=== PATIENT | female | born 1965 | race Caucasian/White ===

== ENCOUNTER 2018-02-21 17:27 | Inpatient (IN) | payer BC, OTHER ==
[~2018-02-21] VITALS: Ht 157.5 cm; Wt 125.6 kg
--- NOTE | ~2018-02-21 | HC ---
[facility] [place] [address] CONSULTATION Name: JUVE DELGADILLO Room #: 420-P ADM IN M.R.#: [id number] Admission: 02/21/18 Attend Phys: Kojo Dixon Discharge: Date of : 65 Report #: [id number] THIS REPORT FOR: //name// CC: Braulio Ace DATE OF SERVICE: 02/25/2018 HISTORY OF PRESENT ILLNESS: A 53-year-old white female with chronic back pain, fibromyalgia, Sjogren syndrome, migraine headaches, obesity, who was admitted to [facility] from [facility]. She was noted to have left lower extremity weakness status post spinal cord stimulator and blood patch placement on 02/21/2018. She had a permanent spinal cord stimulator placed with a positive CSF leak and thus had a blood patch noted at L1-L2. Spinal cord stimulator was noted to have program normally. She awoke with left leg pain and numbness and weakness. Apparently had several similar symptoms at trial and recovered. She has been admitted to [facility]. On 02/23/2018, she underwent anterior lead removal from the intrathecal space. Dr. Augustin indicated in his progress note yesterday 02/24/2018 that she could be discharged to home with ambulatory or to assisted care if not. We are seeing her in rehabilitation medicine consultation. She continues to have left lower extremity numbness and has complaints of proximal weakness. PAST MEDICAL HISTORY: As noted above. She does have a history of obesity, fibromyalgia, depression, GERD, anxiety, asthma, chronic pain, migraines, breast augmentation, lumbar spinal stenosis, lumbar region. She has had prior knee surgeries. ALLERGIES: FENTANYL. SOCIAL HISTORY: She lives with her whom she indicates she is in the process of . Two steps in. Gait was without aids prior to admission. Bedroom is noted to be in the main level. REVIEW OF SYSTEMS: No complaints of chest pain, shortness of breath or abdominal discomfort. She has the left lower extremity pain complaints and proximal weakness as noted above. PHYSICAL EXAMINATION: GENERAL: She is an obese, otherwise pleasant 53-year-old white female in no obvious distress. VITAL SIGNS: Last recorded temperature 36.4, pulse 60, respirations 17, blood pressure 137/79. Alert, oriented, appropriate. HEAD, EYES, EARS, NOSE, AND THROAT: Appeared to be benign. NEUROLOGIC: Cranial nerves grossly intact. Facies are symmetric. Functional range of motion of both upper extremities without focal weakness. Noted to be [address] [place] [address] CONSULTATION Name: JUVE DELGADILLO Room #: 420-P [facility] IN M.R.#: [id number] Admission: 02/21/18 Attend Phys: Kojo Dixon Discharge: Date of : 65 Report #: [id number] ____ 277 pounds. Lower extremities, functional range of motion of the right lower extremity without focal weakness. Normal tone. No calf swelling. Left lower extremity, she was unable to raise that left hip in flexion more than basically reduction is probably 3. She does move the knee better in flexion and extension at 3+, ankle dorsiflexion, plantar flexion, eversion appear to be 4. She can wiggle her large toe. Tone appeared to be intact. She complained of numbness of that left lower extremity, but appeared reasonably intact to simultaneous stimulation both lower extremities to light touch. She was min assist sit to stand and has ambulated 16 feet min assist with a front-wheeled walker. ASSESSMENT: A 53-year-old white female with chronic low back pain and underwent a permanent spinal cord stimulator placement on 02/21/2018 with CSF leak treated with a blood patch ____ left lower extremity pain, numbness and proximal weakness. She has had subsequent anterior lead removal from the intrathecal space on 02/23/2018. PLAN: Discussed with nursing and case management as well as the clinical rehabilitation coordinator. Order placed for physical therapy to evaluate her again today to see how she is functioning. If she is doing reasonably well with her functional abilities, the plan would be to return directly home with her , picking her up and home health care. If she is not doing as well functionally then it would be prudent to check with insurance regarding a short acute in-hospital inpatient rehabilitation stay to further improve her functional independence. We will see how she does in therapy and proceed from there. By: 1221 [id number] Jayesh Morin MD /PMT
[~2018-02-21 17:27] MED LIST: ACCUNEB SO1.25 MG/1; ASPIR 8181 MG PO; BUTALB-APAP-CA1 EACH PO; CENTRUM SILVER1 EAC4 PO; CRESTOR10 MG PO; CYMBALTA60 MG PO; ESTRACE2 M3 PO; FENOFIBRATE160 MG PO; LASIX 40 MG TAB40 M2 PO; LEVOTHYROXINE 0.1 MG PO; LEXAPRO 10 MG T10 M1 PO; OMEPRAZOLE 20 M20 M1 PO; PERCOCET PO; PREDNISONE 10 M10 MG PO; TOPIRAMATE50 MG PO; VALIUM5 MG PO; XANAX 0.25 MG0.25 MG PO; XANAX XR2 MG PO; ZANAFLEX4 MG PO
[2018-02-21 18:29] VITALS: BP 122/70
[2018-02-21 19:30] VITALS: BP 120/68
[2018-02-22 04:10] VITALS: BP 135/70
[2018-02-22 06:17] LABS: ABSOLUTE NEUTROPHILS 5.2 thou/uL (1.4-8.2); BASOPHILS 0.1 % (0.0-2.0); EOSINOPHILS 0.1 % (0.0-3.0); HEMATOCRIT 34.8 % (37.0-47.0); HEMOGLOBIN 11.6 gm/dL (12.0-15.0); MCH 29.9 pg (26.0-34.0); MCHC 33.4 g/dL (28.0-37.0); MCV 89.3 fL (80.0-100.0); MONOCYTES 6.9 % (1.0-8.0); PLATELET COUNT 186 thou/uL (150-400); POLYS 67.9 % (36.0-66.0); WBC 7.6 thou/uL (4.0-11.0)
[2018-02-22 06:34] LABS: ALBUMIN 3.2 g/dL (3.4-5.0); CALCIUM 8.6 mg/dL (8.5-10.1); CREATININE 1.2 mg/dL (0.6-1.0); POTASSIUM 3.5 mmol/L (3.5-5.1); TOTAL BILIRUBIN 0.3 mg/dL (<0.1-1.0); TOTAL PROTEIN 6.4 g/dL (6.4-8.2)
[2018-02-22 07:40] VITALS: BP 113/51
[2018-02-22 20:30] VITALS: BP 127/64
[2018-02-23 04:30] VITALS: BP 121/68
[2018-02-23 05:45] LABS: HEMATOCRIT 32.2 % (37.0-47.0); HEMOGLOBIN 10.6 gm/dL (12.0-15.0); MCH 29.4 pg (26.0-34.0); MCHC 32.8 g/dL (28.0-37.0); MCV 89.5 fL (80.0-100.0); RBC 3.6 mil/uL (4.20-5.00); RDW 13.1 % (10.5-14.5); WBC 5.6 thou/uL (4.0-11.0)
[2018-02-23 05:55] LABS: CALCIUM 8.3 mg/dL (8.5-10.1); POTASSIUM 3.8 mmol/L (3.5-5.1)
[2018-02-23 07:37] VITALS: BP 137/69
[2018-02-23 10:47] VITALS: BP 132/70
[2018-02-23 11:19] VITALS: BP 126/77
[2018-02-23 12:38] VITALS: BP 129/82
[2018-02-23 19:25] VITALS: BP 118/74
[2018-02-24 04:24] VITALS: BP 109/69
[2018-02-24 05:09] LABS: HEMATOCRIT 35.6 % (37.0-47.0); MCH 29.8 pg (26.0-34.0); MCHC 33.7 g/dL (28.0-37.0); MCV 88.5 fL (80.0-100.0); RBC 4.02 mil/uL (4.20-5.00); WBC 6.5 thou/uL (4.0-11.0)
[2018-02-24 05:21] LABS: CALCIUM 9.2 mg/dL (8.5-10.1); CREATININE 0.9 mg/dL (0.6-1.0); POTASSIUM 3.8 mmol/L (3.5-5.1)
[2018-02-24 08:22] VITALS: BP 108/50
[2018-02-24 19:41] VITALS: BP 120/67
[2018-02-25 04:35] VITALS: BP 116/75
[2018-02-25 06:56] LABS: HEMATOCRIT 32.7 % (37.0-47.0); HEMOGLOBIN 10.7 gm/dL (12.0-15.0); MCH 29.2 pg (26.0-34.0); MCHC 32.6 g/dL (28.0-37.0); MCV 89.8 fL (80.0-100.0); RBC 3.65 mil/uL (4.20-5.00); RDW 13.1 % (10.5-14.5)
[2018-02-25 07:11] LABS: CALCIUM 9.3 mg/dL (8.5-10.1); CREATININE 0.9 mg/dL (0.6-1.0); POTASSIUM 3.8 mmol/L (3.5-5.1)
[2018-02-25 07:53] VITALS: BP 137/79
[2018-02-25 15:52] VITALS: BP 123/66
[2018-02-25 19:36] VITALS: BP 123/67
[2018-02-26 04:35] VITALS: BP 132/68
[2018-02-26 07:50] VITALS: BP 134/66
[2018-02-26 08:00] VITALS: BP 103/50
[2018-02-26 16:21] VITALS: BP 129/81
== END 2018-02-26 18:22 | DRG 29 ==
LOC: 4E 17:27 → ENTRNSPT 02-26 18:17 → 4E 02-26 18:22
PROVIDERS: Hospitalist; Nurse Practitioner
PROC: 00PV3MZ Removal of Neurostimulator Lead from Spinal Cord, Percutaneous Approach (ICD-10-PCS; principal; 2018-02-23)
DX: T85.122A Displacement of implanted electronic neurostimulator of spinal cord electrode (lead), initial encounter (principal); Z68.43 Body mass index [BMI] 50.0-59.9, adult; Y83.8 Other surgical procedures as the cause of abnormal reaction of the patient, or of later complication, without mention of misadventure at the time of the procedure; M54.5 Low back pain; M79.7 Fibromyalgia; G43.909 Migraine, unspecified, not intractable, without status migrainosus; E66.9 Obesity, unspecified; F32.9 Major depressive disorder, single episode, unspecified; G89.29 Other chronic pain; K21.9 Gastro-esophageal reflux disease without esophagitis; F41.9 Anxiety disorder, unspecified; G47.33 Obstructive sleep apnea (adult) (pediatric); E03.9 Hypothyroidism, unspecified; E78.00 Pure hypercholesterolemia, unspecified; M19.90 Unspecified osteoarthritis, unspecified site; M35.00 Sjogren syndrome, unspecified; J45.909 Unspecified asthma, uncomplicated; Z90.710 Acquired absence of both cervix and uterus; Z90.49 Acquired absence of other specified parts of digestive tract; Y92.89 Other specified places as the place of occurrence of the external cause; Z79.82 Long term (current) use of aspirin; Z79.899 Other long term (current) drug therapy; Z88.8 Allergy status to other drugs, medicaments and biological substances
CPT/HCPCS: 10783; 50101; 50386; 50417; 56524; 56526; 62110; 62850; 70005

== ENCOUNTER 2018-02-26 17:06 | Inpatient (IN) | payer BC, OTHER ==
[~2018-02-26] VITALS: Ht 157.5 cm; Wt 123.8 kg
--- NOTE | ~2018-02-26 | H ---
[facility] [address] [place] [address] HISTORY AND PHYSICAL Name: JUVE DELGADILLO Room #: 515-P [facility] IN M.R.#: [id number] Admission: 02/26/18 Attend Phys: Jayesh Morin MD Discharge: Date of : 65 Report #: [id number] THIS REPORT FOR: //name// CC: Jayesh Wright DATE OF SERVICE: 02/26/2018 HISTORY AND PHYSICAL AND POST-ADMISSION PHYSICIAN EVALUATION HISTORY OF PRESENT ILLNESS: The patient is a 53-year-old white female with chronic back pain, fibromyalgia, Sjogren syndrome, migraine headaches, obesity, originally admitted to [facility] from [facility]. She was noted to have left lower extremity weakness with complaints status post spinal cord stimulator and subsequent blood patch placement on 02/21/2018. She had a permanent spinal cord stimulator placed with positive CSF leak and thus had a blood patch noted at L1-L2. Spinal cord stimulator was noted to program normally. She indicated she awoke with left leg pain and numbness and weakness. She apparently had similar symptoms at her spinal cord stimulator trial and recovered. She was admitted to [facility]. On 02/23/2018, she underwent anterior lead removal from the intrathecal space. She continues to have complaints of left lower extremity numbness as well as groin numbness and left lower extremity weakness. She notes weakness is more proximal. PAST MEDICAL AND SURGICAL HISTORY: Includes the above. She has a history of obesity, fibromyalgia, depression, GERD, anxiety, asthma, chronic pain, migraines, breast augmentation, lumbar spinal stenosis, prior knee surgeries. ALLERGIES: FENTANYL. SOCIAL HISTORY: She lives with her whom she indicates she is in the process of . There are 2 steps in. Gait was without gait aids prior to admission. Bedroom noted to be on the main level. REVIEW OF SYSTEMS: No complaints of chest pain, shortness of breath, or abdominal discomfort. She has the left lower extremity pain complaints, proximal weakness as well as some weakness of her left large toe, feeling that the leg is "", as well as groin numbness. PHYSICAL EXAMINATION: GENERAL: An obese, pleasant 53-year-old white female, in no obvious distress. Height 5 feet 2 inches, weight 273 pounds. VITAL SIGNS: Last recorded temperature 98, pulse 61, respirations 18, blood pressure 129/81. She is alert, pleasant. HEENT: Appeared to be benign. Cranial nerves are grossly intact[place] [address] HISTORY AND PHYSICAL Name: JUVE DELGADILLO Room #: 515-P [facility] IN [facility].#: [id number] Admission: 02/26/18 Attend Phys: Jayesh Morin MD Discharge: Date of : 65 Report #: [id number] symmetric. She does have significant obesity. CHEST: Sounded clear to auscultation. CARDIOVASCULAR: Regular rate and rhythm. ABDOMEN: Abdominal pannus, bowel sounds positive, nontender. NEUROLOGIC: She has functional range of motion of both upper extremities without focal weakness. Right lower extremity functional range of motion, no focal weakness, no calf swelling, tone is intact. Left lower extremity: She moved it better than when I saw her in consultation a couple of days ago. I would grade her left hip flexion at more of a grade 3-3+, abduction was 3-3+, abduction 3-3+. She appears to contract the muscles better than when previously seen. Knee flexion and extension is at least a grade 3+. She appears to be able to move ankle dorsiflexion and plantarflexion more of a grade 4-, extensor hallus longus is 4-. Again, it was difficult to actually grade her volitional strength as she appears to have some inhibition secondary to pain. Tone appeared to be intact. Sensory examination appeared to be intact to light touch both lower extremities to simultaneous stimulation. I tested her groin and could not detect any obvious focal sensory decrease and also did a brief rectal examination, which showed good tone. She does have her back dressings in place, which are dry and there is no drainage. She has been needing min assist with short distance mobility, transfers, and has a lot of anxiety and needs to move slow. ASSESSMENT: A 53-year-old white female with the following problem list: 1. Left lower extremity weakness, numbness, pain. 2. Complaints of groin numbness. 3. Chronic low back pain. She underwent a permanent spinal cord stimulator placement on 02/21/2018 with CSF leak, treated with blood patch. She has had subsequent anterior lead removal from the intrathecal space on 02/23/2018. 4. Fibromyalgia. 5. Sjogren syndrome. 6. Migraine headaches. 7. Obesity. PLAN: The patient is involved in the inpatient rehabilitation program. From a post-admission physician evaluation perspective, there are no relevant changes since the preadmission screening. Please see the above review of prior and current medical and functional conditions and comorbidities. Please see the patient's previous and current functional status. As far as risk of complications, the patient has multiple medical comorbidities as noted above. The initial plan of care involves the interdisciplinary acute inpatient rehabilitation program with goal of maximizing her functional independence, so she can hopefully return back to her prior living situation. Prognosis is reasonably good with estimated length of stay probably 5-10 days pending her progress. Potential barriers would include her multiple medical comorbidities and decreased functional status. [facility] [address] [place] [address] HISTORY AND PHYSICAL Name: JUVE DELGADILLO Room #: 515-P ADM IN M.R.#: [id number] Admission: 02/26/18 Attend Phys: Jayesh Morin MD Discharge: Date of : 65 Report #: [id number] Hospitalist Service is assisting with her medical care. We discussed with nursing and we will defer any further dressing changes or removal as per Dr. Augustin who was consulted. She seems to be moving that left leg better for me today and I indicated optimism for her as far as gradually improving her functional independence with strength, mobility, ADLs, so we can get her back to the home setting and further progress from there. By: 0830 0921 Jayesh Morin MD /nt
--- NOTE | ~2018-02-26 | HC ---
[facility] [place] [address] [place] [address] CONSULTATION Name: JUVE DELGADILLO Room #: 515-P [facility] IN M.R.#: [id number] Admission: 02/26/18 Attend Phys: Jayesh Morin MD Discharge: 03/04/18 Date of : 65 Report #: [id number] THIS REPORT FOR: //name// CC: Jayesh Wright DATE OF SERVICE: 03/02/2018 ATTENDING PHYSICIAN: Jayesh Morin MD ULTRASOUND TECHNICIAN: Jovan Shankar, PhD CLINICAL PRESENTATION: The patient is a 53-year-old female admitted to the [facility] Unit for comprehensive inpatient rehabilitation program to improve functional mobility, activities of daily living and self-care secondary to deficits from left lower extremity weakness, numbness and pain. Additional assessment diagnoses include groin numbness, chronic low back pain, fibromyalgia, Sjogren syndrome, migraine headaches, and obesity. Reportedly, she underwent a spinal cord stimulator placement and sustained a CSF leak requiring a blood patch. Additionally, she had a subsequent anterior lead removal from the intrathecal space on 02/23/2018. A complete description of her medical condition and history along with medications can be found in her medical records. Neuropsychological consultation was requested to provide assistance in the assessment of emotional status and to provide psychological services. Prior to this most recent medical event, she was living independently in her own home. She is and in the process of divorce. The divorce is described as having been very stressful for her. She has no children. She is a high school graduate. The patient has been on disability since 1999 stemming from Sjogren's and fibromyalgia. 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 TECHNIQUES UTILIZED: Clinical interview, review of medical records, staff consultation and behavioral observation. EXAMINATION FINDINGS: The patient was alert and cooperative with the assessment. She accurately described events surrounding her admission. There is no evidence of aphasia. She does not present with thought disorder. There are no auditory or visual hallucinations. She describes feeling angry and frustrated with the outcome of her surgery. She indicates having taken Cymbalta and Valium to assist in the management of anxiety and pain. She reports current symptoms to include sleep disturbance, variability in mood [facility] [address] [address] CONSULTATION Name: JUVE DELGADILLO Room #: 515-P [facility] IN ..#: [id number] Admission: 02/26/18 Attend Phys: Jayesh Morin MD Discharge: 03/04/18 Date of : 65 Report #: [id number] and fatigue. Additionally, she reported feeling like she has a posttraumatic stress disorder regarding her medical experience. Racing thoughts have kept her awake at night. The patient was diagnosed by Psychiatry with depression based on medication history and trazodone was prescribed, which the patient reports as helping her able to manage sleep. DIAGNOSTIC IMPRESSION: Unspecified anxiety disorder with depression. RECOMMENDATIONS: Continued psychiatric management of medication for anxiety and depression. Psychological services will be of benefit to assist her in adjustment. She is angry about the outcome of her surgery and will benefit from strategies to improve both anger management as well as adjustment to her medical condition. Assisting the patient in recognizing strengths and resources, which are well maintained and have not been affected by the weakness in her left leg and pain disorder. Providing her with pain management strategies will improve her self confidence and self efficacay leading to a more optimistic and hopeful perspective. The use of relaxation strategies will also assist her self confidence in the management of anxiety. Thank you very much for allowing me to provide the consultation on this patient. <ELECTRONICALLY SIGNED> By: Jovan Shankar, PhD 03/05/18 0727 [id number] [id number] Jovan Shankar, PhD /nt
--- NOTE | ~2018-02-26 | PLAN ---
[place] [address] [place] [address] REHAB UNIT PLAN OF CARE Name: JUVE DELGADILLO Room #: 515-P ADM IN M.R.#: [id number] Admission: 02/26/18 Attend Phys: Jayesh Morin MD Discharge: Date of : 65 Report #: [id number] THIS REPORT FOR: //name// CC: Jayesh Wright DATE OF SERVICE: 03/01/2018 HISTORY: The patient is seen back today in followup. She complained of some left knee pain yesterday in therapy. 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 She was doing some heel slides ____ therapy and complained of increased left knee discomfort. On examination, she has the well-healed incision over the lateral patella. There is no swelling or synovitis. She does have some discomfort of the left medial joint line. Appears to have good tracking of the patella with gentle flexion and extension. No obvious instability anterior, posterior, or medial lateral. Negative Rosie. Negative drawer. No focal calf swelling. Neuro exam of the left lower extremity without change. ASSESSMENT: 1. Left knee pain. Apparently has a history of prior repetitive patellar dislocations with 3 prior surgeries. Also note she has arthritis of that knee and apparently has been told that she warrants a total knee replacement by at least one physician. We will obtain an x-ray as discussed, had some Voltaren gel. Hold on heel slides and physical therapy. We will see how she does. May warrant orthopedic consultation if further Effexor functionally. 2. Depression noted per Psychiatry. Appreciate their assistance. 3. Left lower extremity weakness, numbness and pain. Dressing was removed by Dr. Augustin of her low back. 4. Fibromyalgia. 5. Sjogren syndrome. 6. Migraine headaches. 7. Obesity. PLAN: The overall plan of care is based on the preadmission screen, post-admission physician evaluation and information garnered from therapy assessments. 1. Estimated length of stay is at least 5-10 days pending progress and potentially longer depending upon how she does. 2. Medical prognosis is reasonably good. 3. Anticipated interventions includes interdisciplinary acute inpatient rehabilitation program with PT, OT, rehab nursing assisting regarding medication management, skin care prophylaxis, bowel and bladder issues and nursing education. Case management is involved as well as the interdisciplinary acute inpatient rehabilitation program. The goal is to maximize the patient's functional independence, so she can hopefully return [place] [address] REHAB UNIT PLAN OF CARE Name: JUVE DELGADILLO Room #: 515-P [facility] IN [facility]#: [id number] Admission: 02/26/18 Attend Phys: Jayesh Morin MD Discharge: Date of : 65 Report #: [id number] situation. 4. Anticipated functional outcomes would be for the patient to become modified independent with transfers, mobility, ADLs, so she can return back to the home setting. 5. Discharge destination would be back home with her . 6. Expected therapy by discipline includes PT and OT 1-1/2 hours per day, each five days a week throughout the duration of the acute inpatient rehabilitation stay. By: [id number] Jayesh Morin MD /nt
[2018-02-27 06:53] LABS: HEMATOCRIT 34.8 % (37.0-47.0); HEMOGLOBIN 11.9 gm/dL (12.0-15.0); MCH 30.3 pg (26.0-34.0); MCHC 34.1 g/dL (28.0-37.0); MCV 88.9 fL (80.0-100.0); RBC 3.91 mil/uL (4.20-5.00); RDW 13.2 % (10.5-14.5); WBC 4.2 thou/uL (4.0-11.0)
[2018-02-27 07:15] LABS: CALCIUM 9.6 mg/dL (8.5-10.1); CREATININE 1.1 mg/dL (0.6-1.0); POTASSIUM 3.7 mmol/L (3.5-5.1)
[2018-02-27 09:00] VITALS: BP 114/58
[2018-02-27 20:40] VITALS: BP 119/50
[2018-02-28 07:55] VITALS: BP 110/46
[2018-02-28 23:35] VITALS: BP 114/57
[2018-03-01 08:00] VITALS: BP 100/60
[2018-03-02 08:00] VITALS: BP 101/53
[2018-03-02 19:40] VITALS: BP 118/61
[2018-03-03 08:38] VITALS: BP 104/61
[2018-03-03 19:10] VITALS: BP 109/53
[2018-03-04 07:40] VITALS: BP 104/55
[2018-03-04] MEDS ORDERED: COLACE100 MG PO (13:36)
[2018-03-04] MEDS ORDERED: MIRALAX17 GM PO (13:36)
[2018-03-04] MEDS ORDERED: OXYCODONE HCL30 MG PO (13:36)
[2018-03-04 14:06] VITALS: BP 104/55
[2018-03-04 14:33] VITALS: BP 104/55
== END 2018-03-04 16:40 | disposition home health service (06) | DRG 948 ==
LOC: ENTRNSPT 03-04 16:06
PROVIDERS: Physical Medicine & Rehabilitation
DX: R53.1 Weakness (principal); Z68.42 Body mass index [BMI] 45.0-49.9, adult; R20.0 Anesthesia of skin; G89.29 Other chronic pain; M54.5 Low back pain; M79.7 Fibromyalgia; M35.00 Sjogren syndrome, unspecified; G43.909 Migraine, unspecified, not intractable, without status migrainosus; E66.9 Obesity, unspecified; F41.9 Anxiety disorder, unspecified; F32.9 Major depressive disorder, single episode, unspecified; J45.909 Unspecified asthma, uncomplicated; E78.5 Hyperlipidemia, unspecified; K21.9 Gastro-esophageal reflux disease without esophagitis; E03.9 Hypothyroidism, unspecified; Z88.8 Allergy status to other drugs, medicaments and biological substances; K59.00 Constipation, unspecified; M19.90 Unspecified osteoarthritis, unspecified site
CPT/HCPCS: 10112